=== PATIENT | male | born 1975 | race Two or more races ===

== ENCOUNTER 2017-12-03 17:33 | Emergency (ER) | payer OTHER ==
[~2017-12-03] VITALS: Ht 167.6 cm; Wt 68.0 kg
--- NOTE | 2017-12-03 17:52 | Emergency Room Report ---
History of Present Illness General Chief Complaint: Head Injury Source: Patient, EMS Present Illness HPI Paramedics were called to [facility]. The patient was being seen after the head injury. He apparently stood up at work and hit the top this had on a cabinet. There is no loss of consciousness. He denies any pain. They were unable to perform a CAT scan. They state the patient was shaking without loss of consciousness. Apparently he drinks alcohol daily and has shakes. He denies loss of consciousness also during the injury and also after. He rates the pain at 8/10 and sharp stabbing. It's only at the spot where he hit himself. It doesn't radiate. No NVD, coffee grounds, melena, seizures, neck pain, numbness, weakness, chest pain, palpitations. He denies abdominal pain or dysuria. States unknown tetanus (though no breaks in the skin). Allergies: Coded Allergies: No Known Allergies (Unverified , 12/03/17) Patient History Past Medical History: see triage record Social History: Reports: smoking, alcohol use Social History Narrative clinical administrative coordinator Reviewed Nursing Documentation: PMH: Agreed; PSxH: Agreed Nursing Documentation-PMH Past Medical History: No History, Except For Review of Systems All Other Systems: negative except mentioned in HPI Physical Exam Vital Signs Date Time Temp Pulse Resp B/P (MAP) Pulse Ox O2 Delivery O2 Flow Rate FiO2 12/03/17 17:30 98.1 60 16 153/92 99 Room Air 98.1 Sp02 EP Interpretation: reviewed, normal General Appearance: well appearing, no apparent distress, GCS 15 Head: normocephalic, other - hematoma top of head Eyes: bilateral eye normal inspection, bilateral eye PERRL, bilateral eye EOMI ENT: moist mucus membranes - no lingual macerations Neck: supple Respiratory: lungs clear, normal breath sounds Cardiovascular #1: regular rate, rhythm Cardiovascular #2: 2+ radial (R) Gastrointestinal: normal inspection, normal bowel sounds, non tender, no mass, non-distended Musculoskeletal: back normal, gait/station normal, normal range of motion Neurologic: alert, oriented x3, 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 There is no observed seizure activity. The patient denies this also. Differential includes concussion, head contusion, bleed. CT head is indicated. In addition to that the patient will be given Tylenol for pain. CT without bleed or fracture. Patient improved. No tremor. Ambulates without difficulty. Patient stable for outpatient observation and treatment. CT/MRI/US Diagnostic Results CT/MRI/US Diagnostic Results : Imaging Test Ordered: head Impression no bleed, mass or fx Last Vital Signs Date Time Temp Pulse Resp B/P (MAP) Pulse Ox O2 Delivery O2 Flow Rate FiO2 12/03/17 20:02 80 16 153/92 99 12/03/17 19:04 98.1 Room Air 98.1 Status: improved Disposition: HOME, SELF-CARE Condition: Improved Scripts Acetaminophen (Tylenol) 325 Mg Tablet 650 MG ORAL Q6H PRN for Prn Pain/Headache/Temp > 101, #30 TAB 0 Refills Prov: Ricco Trinh M.D. 12/03/17 Ricco Trinh M.D. Dec 03, 2017 17:52
[2017-12-03 19:04] VITALS: BP 153/92
[2017-12-03] MEDS ORDERED: TYLENOL325 MG ORAL (19:38)
[2017-12-03 20:02] VITALS: BP 153/92
--- NOTE | 2017-12-04 08:28 | Diagnostic Imaging Report ---
Indication: Reason For Exam: Headache Technique: Continuous helical CT scanning of the head was performed without intravenous contrast material. Axial and coronal 5 mm sections were generated. Dose: Total Dose Length Product - DLP [address] Dose Index - CTDIvol(s) 70.38 mGy. Automated exposure control was utilized for dose reduction. Comparison:None. Findings: The ventricular system is normal in size and configuration. There is no shift of midline structures. No abnormal extra-axial fluid collections are noted. There is no evidence of intracerebral bleeding. No other abnormal high or low density areas are noted within the brain. Impression: Normal CT scan of the head without contrast material. The above report is concordant with preliminary reading by [facility] . The CT scanner at [facility] is accredited by the [employer] and the scans are performed using protocols designed to limit radiation exposure to as low as reasonably achievable to attain images of sufficient resolution adequate for diagnostic evaluation.
== END 2017-12-03 20:02 | disposition home or self-care (01) ==
LOC: EDBD 17:33 → EMR 17:50
DX: S00.03XA Contusion of scalp, initial encounter (principal); W22.8XXA Striking against or struck by other objects, initial encounter; Y92.511 Restaurant or cafe as the place of occurrence of the external cause; Y99.0 Civilian activity done for income or pay; Z72.89 Other problems related to lifestyle
CPT/HCPCS: 70450; 99284